=== PATIENT | male | born 1970 | race Caucasian/White ===

== ENCOUNTER 2016-09-02 21:02 | Emergency (ER) | payer BC ==
[2016-09-02] MEDS ORDERED: LIPITOR10 M1 PO (21:08)
[2016-09-02] MEDS ORDERED: PROTONIX40 M2 PO (21:08)
[2016-09-02 21:31] LABS: BASO % 0.1 % (0-2); HCT-HEMATOCRIT 50.7 % (36.0-53.5); IMMATURE GRANULOCYTES ABSOLUTE 0.03 tho/cmm (0-0.03); IMMATURE GRANULOCYTES PERCENT 0.2 % (0-0.3); LYMPH % 5.1 % (20-45); LYMPH ABSOLUTE COUNT 0.7 tho/cmm (0.8-4.5); MCH (MEAN CORPUSCULAR HGB) 31.9 pg (28.0-32.0); MCHC MEAN CORPUSCULAR HGB CONC 35.5 % (32.0-36.0); MCV (MEAN CELL VOLUME) 89.9 fl (82.0-96.0); MEAN PLATELET VOLUME 9.7 cmc (9.4-12.4); MONO % 5.9 % (0-12); MONOCYTE ABSOLUTE COUNT 0.8 tho/cmm (0.0-1.2); NEUTROPHIL ABSOLUTE COUNT 12.3 tho/cmm (1.6-8.0); NEUTROPHIL-AUTOMATED 12.3 tho/cmm (1.6-8.0); NEUTROPHILS % 88.7 % (40-80); PLATELET COUNT 326 tho/cmm (150-450); RED BLOOD COUNT 5.64 mil/cmm (4.40-5.70); RED CELL DISTRIBUTION WIDTH 12.6 % (12.4-16.4); WHITE BLOOD COUNT 13.8 tho/cmm (4.0-10.0)
[2016-09-02 21:55] LABS: ALBUMIN 4.3 g/dl (3.5-5.0); ALKALINE PHOSPHATASE 49 U/L (33-138); ALT/SGPT 29 U/L (12-78); BILIRUBIN,TOTAL 0.7 mg/dl (0.0-1.5); BLOOD UREA NITROGEN 39 mg/dl (6-24); CALCIUM 8.9 mg/dl (8.5-10.5); CARBON DIOXIDE-VENOUS 19 mmol/L (22-32); CHLORIDE 111 mmol/l (96-110); CREATININE 1.67 mg/dl (0.60-1.30); GLUCOSE 164 mg/dL (70-110); LIPASE 89 U/L (73-393); SODIUM 140 mmol/L (135-145); eGFR VALUE FOR BLACK 56 mL/Min
[2016-09-02 21:56] LABS: ANION GAP 15 mmol/L (0-20); AST/SGOT 20 U/L (10-40); POTASSIUM 4.5 mmol/L (3.7-5.1)
[2016-09-02] MEDS ORDERED: ZOFRAN ODT4 MG PO (23:46)
== END 2016-09-03 00:33 ==
LOC: EDMED 21:02
PROVIDERS: Emergency Medicine
DX: K52.9 Noninfective gastroenteritis and colitis, unspecified (principal); N17.9 Acute kidney failure, unspecified; E78.5 Hyperlipidemia, unspecified
CPT/HCPCS: J2405; J7030; Q9967